=== PATIENT | female | born 1980 | race Caucasian/White ===

== ENCOUNTER 2019-11-10 05:59 | Day surgery (SDC) | payer BC ==
--- NOTE | 2019-11-09 11:37 | PCM.PREANE ---
Preanesthetic Assessment - Anesthesia/Transfusion/Family Hx Anesthesia History: Prior Anesthesia Without Reaction Family History of Anesthesia Reaction: No Transfusion History: No Prior Transfusion(s) Intubation History: Unknown - Review of Systems General: No Symptoms Pulmonary: No Symptoms (Smoker: when out drinking 20 years) Cardiovascular: Palpitations (anxiety), Dyspnea on Exertion, Orthopnea, Lightheadedness Gastrointestinal: No Symptoms Neurological: No Symptoms (History of veritgo) Other: Reports: Sinus Problem (alergic rhinits), Depression, Anxiety - Physical Assessment NPO Status Date: 11/09/19 NPO Status Time: 23:59 Vital Signs: HR:69 BP:130/90 Resp:16 Sat:96% Temp:97.2 Height: 1.63 m Weight: 93 kg ASA Class: 2 Mental Status: Alert & Oriented x3 Airway Class: Mallampati = 2 Dentition: Reports: Normal Dentition, Caries Thyro-Mental Finger Breadths: 3 Mouth Opening Finger Breadths: 3 ROM/Head Extension: Full Lungs: Clear to Auscultation, Normal Respiratory Effort Cardiovascular: Regular Rate, Regular Rhythm, No Murmurs - Lab Values: Laboratory Last Values MRSA (PCR) Negative 10/27/19 16:53 All labs reviewed and noted and within acceptable ranges to proceed with scheduled procedure. - Allergies Allergies/Adverse Reactions: Allergies Allergy/AdvReac Type Severity Reaction Status Date / Time No Known Allergies Allergy Verified 11/09/19 14:08 - Anesthesia Plan Pre-Op Medication Ordered: None, Other (scopalamine patch behind left ear at 0630) - Acknowledgements Anesthesia Type Planned: General Anesthesia (Right ISB under US guidance for post operative pain control requested by Dr. Saucedo.) Pt an Appropriate Candidate for the Planned Anesthesia: Yes Alternatives and Risks of Anesthesia Discussed w Pt/Guardian: Yes Pt/Guardian Understands and Agrees with Anesthesia Plan: Yes PreAnesthesia Questionnaire - HOME MEDS Home Medications: Home Meds ALPRAZolam [Xanax] 0.25 mg PO BEDTIME 11/09/19 [History] Sertraline [Zoloft] 50 mg PO DAILY 11/09/19 [History] Spironolactone [Aldactone] 100 mg PO DAILY 11/09/19 [History] Acetaminophen/HYDROcodone [[place] 325-5 MG] 1 - 2 tab PO Q6H PRN #30 tablet 11/10 [Rx] Cyclobenzaprine [Flexeril] 0.5 - 1 mg PO Q12H PRN #20 tab 11/10/19 [Rx] - CURRENT (IN HOUSE) MEDS Current Meds: Current Medications Lactated Ringer's (Ringers, Lactated) 1,000 mls @ 125 mls/hr IV ASDIRECTED CHASE Stop: 11/10/19 23:00 Lidocaine/Sodium Bicarbonate (Buffered Lidocaine 1% In Ns 8.4%) 0.25 ml IDERM ONETIME PRN PRN Reason: Prior to IV Start Stop: 11/10/19 18:00 Sodium Chloride (Saline Flush) 10 ml FLUSH ASDIRECTED PRN PRN Reason: Keep Vein Open Stop: 11/10/19 18:00
[~2019-11-10 05:59] MED LIST: EPINEPHrine 1 MG/ML SDV ONE; Lactated Ringers 1,000 ML IV SCH; Lidocaine 1% 2 ML ONE; Lidocaine 1%/Sod Bicarbonate in NS 8.4% 1 ML Syringe IDERM PRN; Ropivacaine 0.5% 5 MG/ML 30 ML SDV ONE; Scopolamine 1.5 MG Transdermal Patch TOP PRN; Sodium Chloride 0.9% 10 ML Syringe FLUSH PRN
[2019-11-10] MEDS ORDERED: ceFAZolin 1 GM Vial ONE (06:07)
[2019-11-10] MEDS ORDERED: Dexamethasone 4 MG/ML 5 ML MDV ONE (06:07)
[2019-11-10] MEDS ORDERED: Ondansetron 4 MG/2 ML SDV ONE (06:07)
[2019-11-10] MEDS ORDERED: Lactated Ringers 1,000 ML ONE (06:07)
[2019-11-10] MEDS ORDERED: Ketorolac 30 MG/ML SDV ONE (06:07)
[2019-11-10] MEDS ORDERED: Rocuronium 50 MG/5 ML Vial ONE (06:07)
[2019-11-10] MEDS ORDERED: Lidocaine 1% 6 ML ONE (06:07)
[2019-11-10] MEDS ORDERED: Propofol 200 MG/20 ML SDV ONE (06:08)
[2019-11-10] MEDS ORDERED: fentaNYL 250 MCG/5 ML SDV ONE (06:08)
[2019-11-10] MEDS ORDERED: Midazolam 1 MG/ML 2 ML SDV ONE (06:08)
--- NOTE | 2019-11-10 07:02 | PCM.SN ---
- Free Text/Narrative Note: Date: 11/10/2019 Time Out: 641 Start: 641 Stop: 651 Surgical Procedure: Right shoulder video arthroscopy with biceps tenotomy versus tenodesis Diagnosis Right arm strain of tendon of long head of biceps Current Procedure: Right interscalene block under US guidance for postoperative pain control requested by Dr. Saucedo. Patient chart reviewed, risk/benefits discussed with patient, consent obtained. Patient positioned supine, monitors/alarms on, oxygen placed via nasal cannula at 2 LPM. IV sedation administered: Versed 2mg IV, Fentanyl 50mcg IV given in preop prior to block placement. Right shoulder prepped with two chloropreps. Sterile drapes placed with aseptic technique noted. Under US guidance, right subclavian artery visualized along with the right brachial plexus. Plexus followed up to C6 cricoid level, and area localized with 2mls of 1% lidocaine. 22gauge 2 inch stimiplex needle advanced under US with 0.6mV with stimulation of biceps noted. Good stimulation noted with decreased voltage and absent at 0.3mVs. 1ml of Normal Saline injected with loss of stimulation noted to confirm needle not placed intraneurally. Incremental dosing of 5mls with negative aspiration noted prior to each injection of 0.5% ropivacaine with 1:200,000 epinephrine. Total volume=30mls. Please refer to nurses noted for vital signs. Anahy Cardenas CRNA
[2019-11-10] MEDS ORDERED: fentaNYL 100 MCG/2 ML SDV IVPUSH PRN (07:37)
[2019-11-10] MEDS ORDERED: ePHEDrine 50 MG/ML SDV IVPUSH PRN (07:37)
[2019-11-10] MEDS ORDERED: HYDROmorphone 0.5 MG/0.5 ML Syringe IVPUSH PRN (07:37)
[2019-11-10] MEDS ORDERED: Midazolam 1 MG/ML 2 ML SDV IVPUSH PRN (07:37)
[2019-11-10] MEDS ORDERED: diphenhydrAMINE 50 MG/ML SDV IVPUSH PRN (07:37)
[2019-11-10] MEDS ORDERED: Ondansetron 4 MG/2 ML SDV IVPUSH PRN (07:37)
[2019-11-10] MEDS ORDERED: Phenylephrine 1 MG in Sodium Chloride 0.9% 10 ML IV PRN (07:45)
[2019-11-10] MEDS ORDERED: EPINEPHrine 1 MG/1 ML Amp SCH (08:00)
--- NOTE | 2019-11-10 08:39 | PCM.POSTAN ---
POST ANESTHESIA ASSESSMENT - MENTAL STATUS Mental Status: Alert - VITAL SIGNS Vital Signs: Last Vital Signs Temp 97.3 11/10/19 0832 Pulse 109 11/10/19 0832 Resp 17 11/10/19 0832 BP 150/80 11/10/19 08 Pulse Ox 109 11/10/19 0832 - RESPIRATORY Respiratory Status: Respiratory Rate WNL, Airway Patent, O2 Saturation Stable, Supplemental Oxygen - CARDIOVASCULAR CV Status: Pulse Rate WNL, Blood Pressure Stable - GASTROINTESTINAL GI Status: No Symptoms - POST OP HYDRATION Hydration Status: Adequate & Stable
--- NOTE | 2019-11-10 11:13 | PCM48HPAN ---
Post Anesthesia Note - EVALUATION WITHIN 48HRS OF ANESTHETIC Vital Signs in Normal Range: Yes Patient Participated in Evaluation: Yes Respiratory Function Stable: Yes Airway Patent: Yes Cardiovascular Function Stable: Yes Hydration Status Stable: Yes Pain Control Satisfactory: Yes Nausea and Vomiting Control Satisfactory: Yes Mental Status Recovered: Yes Vital Signs: Last Vital Signs Temp 36.2 C 11/10/19 10:30 Pulse 81 11/10/19 10:30 Resp 16 11/10/19 10:30 BP 120/57 L 11/10/19 10:30 Pulse Ox 92 L 11/10/19 10:30
--- NOTE | 2019-11-14 07:22 | PCM.OPNOTE ---
- General Post-Op/Procedure Note Date of Surgery/Procedure: 11/10/19 Operative Procedure(s): right shoulder video arthroscopy with biceps tenotomy, extensive debridement and anterior labral repair Pre Op Diagnosis: right shoulder biceps tendinopathy Post-Op Diagnosis: same with anterior labral tear Anesthesia Technique: General ET Tube, Regional Block Primary Surgeon: Filemon Saucedo Anesthesia Provider: Anahy Cardenas Powder Room Attendant: Shannan Marcum in mLs: 5 Complications: None Condition: Good
--- NOTE | 2019-11-15 14:52 | OR ---
DATE OF OPERATION: 11/10/2019 SURGEON: Filemon Saucedo MD OPERATION PERFORMED: Right shoulder video arthroscopy with biceps tenotomy, extensive debridement, and anterior superior labral repair. PREOPERATIVE DIAGNOSIS: Right shoulder biceps tendinopathy. POSTOPERATIVE DIAGNOSIS: Right shoulder biceps tendinopathy with anterior superior labral tear. ANESTHESIA: General endotracheal intubation with regional interscalene block. ANESTHESIA PROVIDER: Anahy Cardenas CRNA HAND POTTER: Shannan Marcum PA-C ESTIMATED BLOOD LOSS: 5 mL. COMPLICATIONS: None. CONDITION: Stable. DESCRIPTION OF PROCEDURE: The patient was identified in the preoperative holding area. Proper site was marked and identified by the surgeon. The patient was taken back to operating theater where after adequate anesthesia, the patient was placed in a lazy left lateral decubitus position. Wedge was placed posteriorly. The patient was secured to the table. Right upper extremity was then sterilely prepped and draped in usual sterile fashion. OR time-out was performed. The patient received 2 g of IV Ancef. Ten pounds of traction was then applied to the right upper extremity. Standard posterior incision was made. Scope trocar was introduced to the glenohumeral joint. The patient had no signs of chondromalacia. The subscapularis tendon was intact. There was noted to be fraying of the biceps tendon and erythema up into the groove. She was noted to have a small tear of the anterior superior labrum. There was no [place] complex noted, and otherwise, the patient's rest of anterior labrum and posterior labrum were intact. At this time, an anterior portal was created with the use of an outside-in technique, and a biceps tenotomy was performed at this time. An extensive debridement was done of the anterior and superior labrum, and it was noted that there was still a loose portion near the anterior superior portion where it was lifted off the glenoid. Two Arthrex 2.9 mm labral PushLock anchors were then placed, and it was found to have adequate sabianism of the anterior and superior labrum. Excess saline was debrided. At this time, attention was turned to the subacromial space, and I did do a debridement of the subacromial space at this time and bursa. There was no fraying of the CA ligament, so excess saline at this time was drained from the shoulder once the rotator cuff was found to be intact. A 3-0 nylon simple sutures used for closure of the portals. The patient was placed in a sterile soft dressing and a pillow sling, sent to PACU in stable condition. TAYLOR /[id number]
== END 2019-11-10 10:50 | disposition home or self-care (01) ==
LOC: JD.SDS 05:59
PROVIDERS: ATTEND Orthopaedic Surgery
DX: S43.431A Superior glenoid labrum lesion of right shoulder, initial encounter (principal); G89.18 Other acute postprocedural pain; G47.33 Obstructive sleep apnea (adult) (pediatric); F41.1 Generalized anxiety disorder; F32.9 Major depressive disorder, single episode, unspecified; F17.210 Nicotine dependence, cigarettes, uncomplicated; X58.XXXA Exposure to other specified factors, initial encounter
CPT/HCPCS: 29807; 64415; 81025; 87641; A9270; C1713; J0171; J0690; J1100; J1885; J2001; J2250; J2405; J2704; J2795; J3010; J7120; 01630; J2710

== ENCOUNTER 2023-05-20 10:37 | Emergency (ER) | payer BC ==
[2023-05-20] MEDS ORDERED: Famotidine 20 MG Tab PO ONE (11:24)
[2023-05-20] MEDS ORDERED: Sucralfate Suspension 1 GM/10 ML Cup PO ONE (11:25)
[2023-05-20] MEDS ORDERED: Aluminum Hydroxide/Magnesium Hydroxide/Simethicone Susp 30 ML Cup PO ONE (11:25)
[2023-05-20 13:19] LABS: BASOPHILS PERCENT AUTO 0.4 % (0.0-1.0); EOSINOPHILS ABSOLUTE AUTO 0.1 K/mm3 (0.0-0.4); EOSINOPHILS PERCENT AUTO 0.6 % (0.0-6.0); HEMOGLOBIN 13.9 gm/dl (12.0-16.0); IMMATURE GRAN ABSOLUTE AUTO 0.04 K/mm3 (0.00-0.05); IMMATURE GRAN PERCENT AUTO 0.4 % (0.0-0.4); LYMPHOCYTES ABSOLUTE AUTO 1.5 K/mm3 (1.0-4.8); LYMPHOCYTES PERCENT AUTO 13.8 % (24.0-44.0); MEAN CORPUSCULAR HEMOGLOBIN 30.2 pg (28.0-32.0); MEAN CORPUSCULAR HGB CONC 34.8 g/dl (32.0-36.0); MEAN PLATELET VOLUME 9.3 fl (9.4-12.3); MONOCYTES ABSOLUTE AUTO 0.7 K/mm3 (0.0-0.8); MONOCYTES PERCENT AUTO 6.1 % (0.0-8.0); NEUTROPHILS ABSOLUTE AUTO 8.5 K/mm3 (1.8-7.7); NEUTROPHILS PERCENT AUTO 78.7 % (41.0-71.0); PLATELET COUNT,PLT 304 K/mm3 (150-400); WHITE BLOOD CELL COUNT,WBC 10.76 K/mm3 (3.9-11.3)
[2023-05-20 13:41] LABS: A/G RATIO 1.2 (1-2); ALANINE AMINOTRANSFERASE,ALT 308 U/L (14-59); ALBUMIN 3.7 g/dl (3.4-5.0); ALKALINE PHOSPHATASE 93 U/L (46-116); ANION GAP 14.5 (5-15); ASPARTATE AMNIOTRANSFERASE,AST 392 U/L (15-37); BILIRUBIN TOTAL 0.9 mg/dL (0.2-1.0); BLOOD UREA NITROGEN,BUN 13 mg/dL (7-18); BUN/CREATININE RATIO 16.3 (14-18); CALCIUM 8.8 mg/dL (8.5-10.1); CARBON DIOXIDE,CO2 26 mEq/L (21-32); CHLORIDE,CL 105 mEq/L (98-107); CREATININE 0.8 mg/dL (0.55-1.02); ESTIMATED GFR 94 mL/min (>60); GLUCOSE RANDOM 82 mg/dL (70-99); POTASSIUM,K 3.5 mEq/L (3.5-5.1); PROTEIN TOTAL,TP 6.9 g/dl (6.4-8.2); SODIUM,NA 142 mEq/L (136-145)
[2023-05-20 13:43] LABS: C-REACTIVE PROTEIN < 0.2 mg/dL (<1.0)
== END 2023-05-20 15:15 | disposition home or self-care (01) ==
LOC: JD.ED 10:37
DX: K29.00 Acute gastritis without bleeding (principal); R74.01 Elevation of levels of liver transaminase levels
CPT/HCPCS: 36415; 76705; 80053; 83690; 85025; 86140; 99284; A9270

== ENCOUNTER 2023-10-29 13:29 | Emergency (ER) | payer BC ==
[2023-10-29] MEDS ORDERED: Ketorolac 30 MG/ML SDV IVPUSH ONE (14:36)
[2023-10-29] MEDS: Iopamidol 612 MG/ML 100 ML Bottle IVPUSH ONE (14:39)
[2023-10-29] MEDS: Sodium Chloride 0.9% 10 ML Syringe FLUSH PRN (14:56)
[2023-10-29] MEDS: Ketorolac 15 MG/ML SDV IVPUSH ONE (15:03)
[2023-10-29] MEDS: Sodium Chloride 0.9% 10 ML Syringe FLUSH ONE (15:04)
== END 2023-10-29 15:50 | disposition home or self-care (01) ==
LOC: JD.ED 13:29
DX: G50.0 Trigeminal neuralgia (principal); Z79.899 Other long term (current) drug therapy
CPT/HCPCS: 70487; 96374; 99283; J1885; J3490; Q9967; 99282